=== PATIENT | female | born 1995 | race Caucasian/White ===

== ENCOUNTER 2016-10-04 00:18 | Inpatient (IN) ==
[2016-10-04] MEDS ORDERED: PEPCID IV PRN (00:25)
[2016-10-04] MEDS ORDERED: TYLENOL PO PRN (00:25)
[2016-10-04] MEDS ORDERED: PEPCID PO ONE (00:25)
[2016-10-04] MEDS ORDERED: REGLAN PO ONE (00:25)
[2016-10-04] MEDS ORDERED: PEPCID PO PRN (00:25)
[2016-10-04] MEDS ORDERED: ZOFRAN IV PRN (00:25)
[2016-10-04] MEDS ORDERED: PITOCIN 30 UNITS/LR 30 UNITS/500 ML IV.SOLN IV SCH (00:25)
[2016-10-04] MEDS ORDERED: STADOL IV PRN ×3 (00:25)
[2016-10-04] MEDS ORDERED: AMBIEN PO PRN ×2 (00:25→12:24)
[2016-10-04] MEDS ORDERED: BRETHINE SUBQ PRN (00:25)
[2016-10-04] MEDS ORDERED: KEFZOL 1 GM/D5W 1 GM/50 ML IVPB IV PRN (00:25)
[2016-10-04] MEDS: LR 1,000 ML IV ONE ×2 (01:10→08:08)
[2016-10-04] MEDS ORDERED: CYTOTEC PO ONE (02:00)
[2016-10-04 02:07] LABS: MANUAL DIFF NEEDED? NO
[2016-10-04 02:08] LABS: URINE SOURCE VOIDED
[2016-10-04 02:21] LABS: BILIRUBIN URINE NEGATIVE (NEGATIVE); BLOOD URINE NEGATIVE (NEGATIVE); CLARITY CLEAR (CLEAR); COLOR YELLOW; GLUCOSE URINE NEGATIVE (NEGATIVE); LEUKOCYTES URINE TRACE (NEGATIVE); NITRITE URINE NEGATIVE (NEGATIVE); PROTEIN URINE NEGATIVE (NEGATIVE); SP GRAVITY URINE 1.015; UROBILINOGEN URINE 1+(1 mg/dL)
[2016-10-04 02:22] LABS: BASO% 0.1 % (0.0-0.8); EOS# 0.05 X1000 (0.0-0.7); EOS% 0.4 % (0.0-10.0); HEMATOCRIT 28.7 % (37.0-47.0); HEMOGLOBIN 9.4 g/dL (12.0-16.0); IMM GRAN# 0.05 X1000 (0.0-0.04); IMM GRAN% 0.4 % (0.0-0.5); LYMPH# 1.99 X1000 (1.2-3.4); LYMPH% 17.8 % (20.5-51.1); MCH 28.7 PG (27-31); MCHC 32.8 g/dL (33-37); MCV 87.5 FL (81-99); MONO% 8.1 % (1.7-9.3); MPV 10.7 FL (7.4-10.4); NEUT% 73.2 % (42.2-75.2); PLT 272 X1000 (130-400); RBC 3.28 XMIL (4.2-5.4)
[2016-10-04 02:23] LABS: UR AMPHETAMINES QUAL NONE DETECTED (NONE DETECT); UR BARBITUATES QUAL NONE DETECTED (NONE DETECT); UR BENZODIAZEPIN QUAL NONE DETECTED (NONE DETECT); UR CANNABINOIDS QUAL NONE DETECTED (NONE DETECT); UR COCAINE QUAL NONE DETECTED (NONE DETECT); UR MDMA QUAL NONE DETECTED (NONE DETECT); UR METHADONE QUAL NONE DETECTED (NONE DETECT); UR METHAMPHETAMINE QUAL NONE DETECTED (NONE DETECT); UR OPIATES QUAL NONE DETECTED (NONE DETECT); UR OXYCODONE QUAL NONE DETECTED (NONE DETECT); UR PCP QUAL NONE DETECTED (NONE DETECT); UR TCA QUAL NONE DETECTED (NONE DETECT)
[2016-10-04] MEDS ORDERED: MINERAL OIL TOP ONE (07:14)
[2016-10-04] MEDS ORDERED: FENTANYL-BUPIV-NS 2 MCG-0.1% 200 ML EPIDURAL PRN (07:15)
[2016-10-04] MEDS ORDERED: XYLOCAINE-MPF 1% INJ ONE (07:16)
[2016-10-04] MEDS ORDERED: FIORICET PO ONE (11:23)
[2016-10-04] MEDS ORDERED: METHERGINE ONE (12:11)
[2016-10-04] MEDS ORDERED: METHERGINE IM ONE (12:23)
[2016-10-04] MEDS ORDERED: BENADRYL IV PRN (12:24)
[2016-10-04] MEDS ORDERED: MINERAL OIL PO PRN (12:24)
[2016-10-04] MEDS ORDERED: BOOSTRIX VACCINE IM ONE (12:24)
[2016-10-04] MEDS ORDERED: HYDROXYZINE IM PRN (12:24)
[2016-10-04] MEDS ORDERED: M-M-R II VACCINE SUBQ ONE (12:24)
[2016-10-04] MEDS ORDERED: PITOCIN 20 UNITS/LR 20 UNITS/1,000 ML IV.SOLN IV SCH (12:24)
[2016-10-04] MEDS ORDERED: XYLOCAINE-MPF 1% INJ PRN (12:24)
[2016-10-04] MEDS ORDERED: CYTOTEC PO PRN (12:24)
[2016-10-04] MEDS ORDERED: HYDROXYZINE PO PRN (12:24)
[2016-10-04] MEDS ORDERED: BENADRYL PO PRN (12:24)
[2016-10-04] MEDS ORDERED: PITOCIN IM PRN (12:24)
[2016-10-04] MEDS ORDERED: PITOCIN 30 UNITS/LR 30 UNITS/500 ML IV.SOLN IV ONE (12:24)
[2016-10-04] MEDS ORDERED: PERI MEDS (DERMOPLAST/NUPERCAINAL/TUCKS) MISC PRN (12:24)
[2016-10-04] MEDS: NORCO-10 PO PRN (12:40)
[2016-10-04] MEDS ORDERED: ZOFRAN ODT PO PRN (14:46)
--- NOTE | 2016-10-04 14:54 | OPERATIVE NOTE ---
PROCEDURE DATE: 10/04/2016 PREDELIVERY DIAGNOSES: 1. Intrauterine at 39 and 3. 2. History of herpes simplex virus 3. Rubella nonimmune. POSTDELIVERY DIAGNOSES: 1. Intrauterine at 39 and 3. 2. History of herpes simplex virus 3. Rubella nonimmune. 4. Nuchal cord x1. PROCEDURE: Vacuum-assisted vaginal delivery. PHYSICIAN: Dr. Jose L Villanueva. ANESTHESIA: Epidural by Dr. Larson. FINDINGS: Viable male infant. I do not have weights or Apgars. ESTIMATED BLOOD LOSS: 200 mL. No lacerations or tears. Three-vessel cord. Placenta spontaneous, intact. Counts correct. DELIVERY NOTE: Ms. Agee is a 21-year-old who was admitted for labor induction. She was artificially ruptured, started on Pitocin and reached complete cervical dilatation. She had some deep variables, so the decision was made to proceed with a vacuum-assisted delivery at +3 station occiput anterior. The kiwi vacuum was applied. The pressure was kept in the green range and with the next contraction she delivered a viable male infant over an intact perineum. Nuchal cord x1 was reduced without difficulty. Shoulders and rest of the body delivered easily. The cord was doubly clamped and cut. Care of was taken over by nursery personnel. Cord blood was obtained. It was noted to be a 3-vessel cord. Then traction on the cord resulted in delivery of the placenta after approximately 3 minutes. It was inspected found to be intact. Inspection of the perineum and vagina did not reveal any lacerations, clots, or foreign material. She had some brisk bleeding and was given a shot of Methergine with good results. Estimated blood loss 200 mL. Expect routine . cc: Jose L Villanueva MD
[2016-10-04] MEDS: PERICOLACE PO SCH (21:06)
[2016-10-04] MEDS: NORCO-5 PO PRN (21:29)
[2016-10-04] MEDS: MOTRIN PO PRN (21:29)
[2016-10-05] MEDS: NORCO-5 PO PRN ×2 (02:38→06:43)
[2016-10-05] MEDS: MOTRIN PO PRN ×2 (06:43→17:15)
[2016-10-05 06:55] LABS: MANUAL DIFF NEEDED? NO
[2016-10-05 08:12] LABS: BASO% 0.1 % (0.0-0.8); EOS# 0.09 X1000 (0.0-0.7); EOS% 0.9 % (0.0-10.0); IMM GRAN# 0.03 X1000 (0.0-0.04); IMM GRAN% 0.3 % (0.0-0.5); LYMPH# 2.08 X1000 (1.2-3.4); LYMPH% 20.5 % (20.5-51.1); MCH 27.6 PG (27-31); MONO# 1.14 X1000 (0.11-0.59); MONO% 11.2 % (1.7-9.3); PLT 245 X1000 (130-400); RBC 3.26 XMIL (4.2-5.4)
[2016-10-05] MEDS: PRECARE PO SCH (09:27)
[2016-10-05] MEDS: NORCO-10 PO PRN ×3 (12:04→23:52)
[2016-10-05] MEDS: PERICOLACE PO SCH (21:35)
[2016-10-06] MEDS: NORCO-10 PO PRN ×2 (03:38→07:52)
[2016-10-06] MEDS: PRECARE PO SCH (07:52)
[2016-10-06] MEDS: MOTRIN PO PRN (07:53)
[2016-10-06 07:54] VITALS: BP 111/67
== END 2016-10-06 10:00 | disposition home or self-care (01) ==
LOC: P.LD 00:18 → P.WC 14:31
PROVIDERS: ADMIT Obstetrics & Gynecology; ATTEND Obstetrics & Gynecology